=== PATIENT | female | born 1975 | race Caucasian/White ===

== ENCOUNTER 2022-01-14 20:00 | Emergency (ER) | payer OTHER ==
[~2022-01-14] VITALS: Ht 162.6 cm; Wt 90.5 kg
[2022-01-14 20:06] VITALS: BP 139/81
--- NOTE | 2022-01-14 20:15 | NUR ---
PT TAKEN TO ER BED 06
--- NOTE | 2022-01-14 20:26 | NUR ---
46 Y/O FEMALE BIB GRANDMOTHER, C/O VAGINAL BLEEDING AND CRAMPING X1 2.5HRS. PT STATES SHE HAS BRIGHT RED BLOOD WITH CLOTS, DIFFUSE LOWER ABD CRAMPING, AND HAS SOAKED THROUGH 1 PAD SINCE THE BLEEDING STARTED. PT HAS HAD A RECENT VAGINAL BIOPSY 2 WEEKS AGO. DENIES N/V/D; SKIN IS PINK/WARM/DRY; AAOX4 WITH EVEN AND STEADY GAIT; LUNGS CLEAR BL; HR EVEN AND REGULAR; PT DENIES ANY FEVER, CP, SOB, OR COUGH AT THIS TIME; PATIENT STATES PAIN OF 8/10 THAT COMES AND GOES; VSS; PATIENT POSITIONED FOR COMFORT; HOB ELEVATED; BEDRAILS UP X1; BED DOWN. ER MD MADE AWARE OF PT STATUS. HX: HTN, HDL, DM NKA MED: METFORMIN
--- NOTE | 2022-01-14 20:32 | NUR ---
GENE ZENDEJAS AT BEDSIDE ASSESSING PT.
--- NOTE | 2022-01-14 20:42 | NUR ---
ER MD AT BEDSIDE PERFORMING PELVIC EXAM
--- NOTE | 2022-01-14 20:54 | NUR ---
forestry farm laborer at bedside
[2022-01-14] MEDS ORDERED: NACL 0.9% 1,000 ML IV ONE (20:55)
[2022-01-14 21:10] LABS: BASOPHILS # (AUTO) 0.1 K/uL (0.00-0.22); BASOPHILS % (AUTO) 0.7 % (0.0-2.0); EOSINOPHILS # (AUTO) 0.4 K/uL (0-0.4); EOSINOPHILS % (AUTO) 3.3 % (0.0-4.0); HEMATOCRIT 33.2 % (36-48); HEMOGLOBIN 11.4 g/dL (12.0-16.0); LYMPHOCYTES # (AUTO) 2.8 K/uL (2.5-16.5); LYMPHOCYTES % (AUTO) 26.7 % (20.5-51.1); MEAN CORPUSCULAR HEMOGLOBIN 32 pg (27-31); MEAN CORPUSCULAR HGB CONC 34 g/dL (33-37); MEAN CORPUSCULAR VOLUME 92.6 fL (80-94); MONOCYTES # (AUTO) 0.7 K/uL (0.8-1.0); MONOCYTES % (AUTO) 6.4 % (1.7-9.3); NEUTROPHILS # (AUTO) 6.7 K/uL (1.8-7.7); NEUTROPHILS % (AUTO) 62.9 % (42.2-75.2); PLATELET COUNT (AUTO) 280 K/uL (140-450); RED BLOOD CELL COUNT(AUTO) 3.58 MIL/uL (4.20-5.40); RED CELL DISTRIBUTION WIDTH 13.1 % (11.6-13.7); WHITE BLOOD COUNT (AUTO) 10.7 K/uL (4.8-10.8)
[2022-01-14 21:25] LABS: ALBUMIN 3.3 g/dL (3.4-5.0); CARBON DIOXIDE 27.3 mmol/L (21-32); CREATININE 0.9 mg/dL (0.6-1.3); POTASSIUM 3.3 mmol/L (3.5-5.1); TOTAL BILIRUBIN 0.2 mg/dL (0.0-1.0)
--- NOTE | 2022-01-14 22:21 | NUR ---
# 15 FR Urinary catheter inserted utilizing sterile technique. Immediate return of 650 ml STRAW COLORED CLEAR urine noted. Urine sample collected and sent to lab. Pt tolerated procedure WELL.
[2022-01-14 22:56] LABS: APPEARANCE,URINE CLEAR (CLEAR); BILIRUBIN,URINE NEGATIVE (NEGATIVE); BLOOD, URINE 3+ (NEGATIVE); COLOR,URINE YELLOW (YELLOW); LEUKOCYTE ESTERASE ,URINE NEGATIVE (NEGATIVE); NITRITE, URINE NEGATIVE (NEGATIVE); PH,URINE 6.5 (5.0-9.0); UGLUCOSE NEGATIVE (NEGATIVE)
[2022-01-14 23:18] LABS: RBC,URINE 0-5 /HPF (0-5); WBC,URINE 0-5 /HPF (0-5)
[2022-01-15] MEDS ORDERED: MEDR5TAB PO (02:24)
[2022-01-15 02:54] VITALS: BP 130/49
--- NOTE | 2022-01-15 02:55 | NUR ---
Patient discharged with v/s stable. Written and verbal after care instructions for abnormal uterine bleedinggiven and explained. Patient alert, oriented and verbalized understanding of instructions. Ambulatory with steady gait. All questions addressed prior to discharge. ID band removed. Patient advised to follow up with PMD. Rx of Medroxyprogesterone Acetate given. Patient educated on indication of medication including possible reaction and side effects. Opportunity to ask questions provided and answered. VSS, A/OX4, AMBULATORY, UNLABORED BREATHING, AND CALM DEMEANOR.
[2022-01-15] MEDS ORDERED: medroxyPROGESTERone 10 MG TAB PO SCH (09:00)
== END 2022-01-15 02:53 | disposition home or self-care (01) ==
LOC: MED 20:00
DX: N93.9 Abnormal uterine and vaginal bleeding, unspecified (principal); F41.9 Anxiety disorder, unspecified
CPT/HCPCS: 36415; 76830; 80053; 81001; 81025; 84703; 85025; 86900; 86901; 96360; 99284; J7030; Q0092